=== PATIENT | male | born 1965 | race Caucasian/White ===

== ENCOUNTER 2017-01-25 14:12 | Emergency (ER) | payer OTHER ==
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
[~2017-01-25 14:12] MED LIST: BACITRACIN30 GM TOP; BENADRYL25 MG; BENADRYL25 MG PO; GABAPENTIN800 MG PO; LISINOPRIL; PEPCID; PERCOCET; PREDNISONE
[2017-01-25 14:34] LABS: BASOPHIL# 0.3 X10e3 (0-0.3); BASOPHIL% 3.3 % (0-2.5); EOSINOPHIL# 0.5 X10e3 (0-0.7); EOSINOPHIL% 5.4 % (0.0-7.0); HEMOGLOBIN 15.6 gm/dL (13.0-16.0); LYMPHOCYTE# 1.7 X10e3 (1.0-3.5); MEAN CELL VOLUME 96.5 FL (83-96); MEAN CORPUSCULAR HEMOGLOBIN 31.9 PG (28-34); MEAN CORPUSCULAR HGB CONC 33.1 g/dL (30-36); MEAN PLATELET VOLUME 7.6 FL (6.5-11.5); MONOCYTE# 1.1 X10e3 (0-1.0); MONOCYTE% 10.6 % (3.0-12.0); NEUTROPHIL# 6.4 X10e3 (1.5-7.1); NEUTROPHIL% 63.7 % (40-75); PLATELET COUNT 253 X10e3 (140-420); RED BLOOD COUNT 4.87 X10e (3.90-5.60); RED CELL DISTRIBUTION WIDTH 14.2 % (11.0-15.5)
[2017-01-25 14:50] LABS: DIFF IND NO
[2017-01-25 14:56] LABS: CALCIUM SERUM 9.2 mg/dL (8.4-10.2); GLOM FILT RATE Estimated 85.6 mL/min (>60); POTASSIUM 4.2 mmol/L (3.5-5.1)
== END 2017-01-25 15:17 | disposition home or self-care (01) ==
LOC: SED 14:12
PROVIDERS: Emergency Medicine
DX: M10.9 Gout, unspecified (principal); I10 Essential (primary) hypertension; F17.200 Nicotine dependence, unspecified, uncomplicated
CPT/HCPCS: 36415; 73130; 80048; 84550; 85025; 99283